=== PATIENT | female | born 1970 | race Caucasian/White ===

== ENCOUNTER → 2018-03-03 11:08 | Outpatient (CLI) | payer OTHER, BC, SELFPAY ==
[2018-03-03 12:21] LABS: Hematocrit 41.7 % (37-47); Mean Corp Hgb Conc 31.2 g/gl (32-36); Mean Corpuscular Hgb 26.6 pg (27.0-32.0); Mean Corpuscular Volume 85.5 fL (81-99); Mean Platelet Vol. 10.6 fl (6.2-12.0); Platelet Count 261 K/mm3 (150-450); RBC Distribution Width CV 14.5 % (11.6-14.6); RBC Distribution Width SD 45.7 fl (35.1-43.9); Red Blood Count 4.88 M/mm3 (4.2-5.4); White Blood Count 7.1 K/mm3 (4.4-11.0)
[2018-03-03 12:27] LABS: Scan Indicated on CBC? Y/N NO
[2018-03-03 12:47] LABS: Anion Gap 5 (5-15); BUN 12 mg/dL (7-18); BUN/Creat Ratio 13.6 RATIO (10-20); Calcium,Total 8.8 mg/dL (8.5-10.1); Chloride 105 mmol/L (98-107); Creatinine, Serum 0.88 mg/dL (0.55-1.02); EST Glomerular Filtration Rate 73 mL/min (>60); Est Glom Filt Rate - Afr Amer 88 mL/min (>60); Glucose 98 mg/dL (74-106); Potassium 3.5 mmol/L (3.5-5.1); Sodium Level 142 mmol/L (136-145)
== END ==
PROVIDERS: Family Provider Internal Medicine; PCP Internal Medicine; Visit Provider Orthopaedic Surgery
DX: Z01.818 Encounter for other preprocedural examination (principal); Z01.810 Encounter for preprocedural cardiovascular examination
CPT/HCPCS: 36415; 80048; 85027; 93005

== ENCOUNTER 2018-10-14 10:56 | Outpatient (RCR) | payer BC, SELFPAY | END 2018-10-23 23:59 | LOC: NS 10:56 | PROVIDERS: Family Provider Internal Medicine; PCP Internal Medicine; Visit Provider Orthopaedic Surgery | DX: E66.9 Obesity, unspecified (principal); Z68.42 Body mass index [BMI] 45.0-49.9, adult | CPT/HCPCS: 97802 ==

== ENCOUNTER → 2021-01-10 13:52 | Outpatient (CLI) | payer OTHER, SELFPAY ==
--- NOTE | 2021-01-10 13:59 | EKG12_ITS ---
Test Reason : PREOP Blood Pressure : / mmHG Vent. Rate : 066 BPM Atrial Rate : 066 BPM P-R Int : 202 ms QRS Dur : 096 ms QT Int : 380 ms P-R-T Axes : 063 072 065 degrees QTc Int : 398 ms Normal sinus rhythm Normal ECG Confirmed by KRISTIAN COELHO, ESTEPHANIA ([id number]), research editor CELI SUAZO ([id number]) on 01/13/2021 10:56:36 A M Referred By: Austin Zayas Confirmed By:GABY TOWNSEND MD
--- NOTE | 2021-01-10 14:15 | RAD_ITS ---
STUDY: X-RAY CHEST REASON FOR EXAM: Female, 50 years old. PREOP TECHNIQUE: PA and lateral views of the chest. COMPARISON: Comparison is made with prior study dated 01/18/2015. FINDINGS: The lungs are clear and expanded. There is no demonstrated pleural abnormality. Normal size heart. Normal mediastinum and aanly. Normal visualized pulmonary arteries. Normal visualized aortic arch and descending thoracic aorta. There are mild degenerative changes of the visualized thoracic spine. Normal visualized ribs, clavicles, and shoulders. There is no demonstrated abnormality of the visualized soft tissue structures of the upper abdomen. RAD/Chest PA and Lateral IMPRESSION: No acute abnormality is seen. Electronically Signed: Ozzy Maza MD at 15:33 EDT , Service support ,
== END ==
PROVIDERS: PCP Internal Medicine; Referring Provider Orthopaedic Surgery; Visit Provider Orthopaedic Surgery
DX: Z01.811 Encounter for preprocedural respiratory examination (principal); Z01.810 Encounter for preprocedural cardiovascular examination
CPT/HCPCS: 71046; 93005

== ENCOUNTER 2021-01-12 09:01 | Emergency (ER) | payer BC, MEDICAID, SELFPAY ==
[2021-01-12] VITALS (7 sets, daily range): BP systolic 135–170; BP diastolic 77–98; PULSE 104–122; RESP 17–43; TEMP 37.2–38.9; O2SAT 92–97; BMI 44.1
--- NOTE | 2021-01-12 09:23 | EKG12_ITS ---
Test Reason : Blood Pressure : / mmHG Vent. Rate : 119 BPM Atrial Rate : 119 BPM P-R Int : 200 ms QRS Dur : 092 ms QT Int : 284 ms P-R-T Axes : 045 063 006 degrees QTc Int : 399 ms Sinus tachycardia Nonspecific ST-T Changes Abnormal ECG Confirmed by KRISTIAN COELHO, ESTEPHANIA ([id number]), desk editor CELI SUAZO ([id number]) on 01/13/2021 10:51:36 A M Referred By: SKYLAR Confirmed By:GABY TOWNSEND MD
--- NOTE | 2021-01-12 09:24 | EDS_ITS ---
HPI History of Present Illness Chief Complaint: Cellulitis Informant: patient Onset/Context/Timing Onset: Today Quality: Red and swollen Location: Left foot Current Severity: Moderate Maximum Severity: Moderate Worsened by: Nothing Relieved by: Nothing Associated Symptoms Associated Symptoms: Fever/chills, malaise, feels heart beating fast Narrative Narrative: Patient presenting saying that she has cellulitis in her left foot. She has had this before. She states it occurred similar to this, where she woke up with redness and did not have any symptoms there last night. She states it really does not hurt. She has had chronic pain in her left ankle from a fracture/ORIF/hardware removal, she has had no surgeries on that in the past several years, and states that it has been hurting more when she is bearing weight on it for the last week or 2, but it has been in the ankle and not the foot where the redness is. She denies any injuries, splinters, splits in the skin, or any other obvious nidus for possible infection in her left foot recently. She went to [facility] urgent care initially this morning but was referred here to the emergency department. [facility] Medical History (Updated 01/12/21 @ 11:[address] Pawel Zhu MD) Anxiety Depression Depression Hypertension Home Medications bupropion HCl 300 mg PO DAILY 01/18/15 [History Last Taken Unknown] cyclobenzaprine 10 mg PO TID PRN #20 tablet 01/18/15 [Rx Last Taken Unknown] fluoxetine 10 mg PO DAILY 01/18/15 [History Last Taken Unknown] hydrochlorothiazide 12.5 mg PO DAILY 01/18/15 [History Last Taken Unknown] naproxen 500 mg PO BID PRN #20 tab 01/18/15 [Rx Last Taken Unknown] ondansetron 8 mg PO Q6H PRN PRN #20 tab 01/18/15 [Rx Last Taken Unknown] oxycodone-acetaminophen 1 - 2 tab PO Q4H PRN PRN #12 tab 01/18/15 [Rx Last Taken Unknown] cephalexin 500 mg PO Q6 #40 capsule 01/12/21 [Rx Last Taken Unknown] furosemide 20 mg PO DAILY 01/12/21 [History Last Taken Unknown] Allergy/AdvReac Type Severity Reaction Status Date / Time No Known Allergies Allergy Verified 01/12/21 09:02 Social History Smoking Status: Never smoker ROS ROS ED Constitutional Constitutional ED: Reports as per HPI, chills, fever(s) and malaise Eyes Eyes: Denies change in vision or diplopia ENT ENT ED: Denies rhinorrhea or sore throat Cardiovascular Cardiovascular: Reports other Details: I can tell my heart rate is increased. ; Denies chest pain or palpitations Respiratory/Chest Respiratory/Chest: Denies cough or dyspnea Gastrointestinal Gastrointestinal: Denies abdominal pain, diarrhea, nausea or vomiting Genitourinary Genitourinary ED: Denies dysuria or hematuria Musculoskeletal Musculoskeletal: Reports as per HPI and extremity pain; Denies back pain or neck pain Integumentary Reports as per HPI, erythema and rash; Denies abscess Neurologic Neurologic: Denies headache(s), paresthesias or weakness Psychiatric Psychiatric: Denies anxiety or suicidal thoughts EXAM Physical Exam Const Vital Signs: 01/12/21 09:02 01/12/21 10:53 01/12/21 10:54 Temperature 102.1 F H 99 F 99 F Temperature Source Oral Temporal Temporal Pulse Rate 122 H 119 H Respiratory Rate 17 22 H Blood Pressure 170/98 H 158/95 H Blood Pressure Mean 122 116 Pulse Ox 97 93 Oxygen Delivery Method Room Air Room Air 01/12/21 10:57 01/12/21 11:06 Temperature 99 F 99 F Temperature Source Temporal Temporal Pulse Rate 119 H 117 H Respiratory Rate 43 H 35 H Blood Pressure 158/95 H 135/77 H Blood Pressure Mean 116 96 Pulse Ox 93 93 Oxygen Delivery Method Room Air Room Air Positive well nourished and well developed General Appearance ED: well developed and NAD HEENT Reports moist mucous membranes normocephalic and atraumatic Eyes PERRL and EOMs intact bilaterally Neck full ROM and supple Resp normal respiratory effort and clear to auscultation bilaterally Cardio regular rate, regular rhythm and no murmurs Rate: tachycardic GI non-tender and non-distended Auscultation: normoactive bowel sounds Palpation: soft Back/Spine no CVA tenderness General Back: other FROM Extremity full ROM Extremity Narrative: Mildly tender both left ankle malleoli which has normal overlying skin and well-healed scars. She can move it fully without any apparent discomfort while nonweightbearing. There is erythema with some localized swelling and increased warmth on the dorsum of the left foot that involves toes 2-4. No obvious nidus for infection, checked the webspaces as well. Normal plantar aspect. General Extremety ED: Negative for pulses abnormal General Extremity: Negative for pulses abnormal Neuro oriented x3, CN's II-XII intact bilaterally and no sensory deficits noted Sensorium / Orientation: awake and alert Motor Exam: strength 5/5 throughout Skin no wounds Skin Narrative: Erythema with mild tenderness with deep palpation dorsum left foot. Nonwell-circumscribed edges. No lymphangitis or inguinal lymphadenopathy. No abscess. No bullae or other lesions. MDM MDM MDM Narrative Medical decision making narrative: Erythema is warm, it is not itchy and not painful, and barely tender to only deep palpation. However with her prior history, and the fact that she has a fever and no other symptoms of a source, this is a cellulitis until proven otherwise. Given her vital signs, septic work-up was obtained and she was given IV vancomycin. X-ray 3 views left foot on monitor rotation shows no evidence of fracture or osteomyelitis. No subcutaneous air. She states she has been placed on Keflex in the past which has helped. She meets criteria for sepsis although her lactate is normal, she was offered admission. She declined, she wants to be discharged home and treat this as an outpatient. We outlined the area with a skin marking pen to help her follow progression, and she is comfortable with this overall plan, we discussed reasons to return. Of note, on my reevaluation, the erythema has not changed in its distribution compared with when the patient presented. Lab Data Labs: Laboratory Results - last 24 hr 01/12/21 01/12/21 01/12/21 10:30 10:30 10:30 WBC 13.5 H RBC 5.16 Hgb 13.8 Hct 43.1 MCV 83.5 MCH 26.7 L MCHC 32.0 RDW Std Deviation 41.7 RDW Coeff of Tong 13.7 Plt Count 234 MPV 10.3 Immature Gran % (Auto) 0.300 Neut % (Auto) 90.1 H Lymph % (Auto) 4.3 L [place] % (Auto) 5.0 Eos % (Auto) 0.1 Baso % (Auto) 0.2 Absolute Neuts (auto) 12.2 H Absolute Lymphs (auto) 0.58 L Nucleated RBC % 0 Platelet Estimate ADEQUATE RBC Morphology NORM C+C PT 13.1 INR 1.1 APTT 28.8 Sodium 139 Potassium 4.0 Chloride 107 Carbon Dioxide 24.0 Anion Gap 8 BUN 13 Creatinine 0.78 Estim Creat Clear Calc 87.04 Est GFR (MDRD) Af Amer 100 Est GFR (MDRD) Non-Af 83 BUN/Creatinine Ratio 16.6 Glucose 104 Lactic Acid Calcium 9.0 Total Bilirubin 0.80 AST 22 ALT 63 H Alkaline Phosphatase 104 Total Protein 7.7 Albumin 3.7 Globulin 4.0 Albumin/Globulin Ratio 0.9 01/12/21 10:30 WBC RBC Hgb Hct MCV MCH MCHC RDW Std Deviation RDW Coeff of Tong Plt Count MPV Immature Gran % (Auto) Neut % (Auto) Lymph % (Auto) [place] % (Auto) Eos % (Auto) Baso % (Auto) Absolute Neuts (auto) Absolute Lymphs (auto) Nucleated RBC % Platelet Estimate RBC Morphology PT INR APTT Sodium Potassium Chloride Carbon Dioxide Anion Gap BUN Creatinine Estim Creat Clear Calc Est GFR (MDRD) Af Amer Est GFR (MDRD) Non-Af BUN/Creatinine Ratio Glucose Lactic Acid 1.6 Calcium Total Bilirubin AST ALT Alkaline Phosphatase Total Protein Albumin Globulin Albumin/Globulin Ratio Radiography Diagnostic Testing: Radiology Impression Foot X-Ray 01/12/21 09:24 IMPRESSION: No acute osseous abnormality identified in the left foot. at 1042 Reported and signed by: Shannon Harrison MD Electronically Signed: Shannon Harrison MD at 10:40 EDT Tel , Service support , Discharge Plan Triage Chief Complaint: Cellulitis ED Provider: Pawel Zhu Dx/Rx/DC Orders Clinical Impression: Cellulitis of left foot, Sepsis Instructions: Cellulitis Prescriptions: New cephalexin [cephalexin] 500 MG capsule 500 mg PO Q6 Qty: 40 RF: 0 No Action hydrochlorothiazide 12.5 MG capsule 12.5 mg PO DAILY RF: 0 fluoxetine 10 MG capsule 10 mg PO DAILY RF: 0 bupropion HCl 300 MG tablet extended release 24 hr 300 mg PO DAILY RF: 0 oxycodone-acetaminophen 1 TABLET tablet 1 - 2 tab PO Q4H PRN PRN (Reason: Pain) Qty: 12 RF: 0 cyclobenzaprine 10 MG tablet 10 mg PO TID PRN (Reason: Muscle Spasm) Qty: 20 RF: 0 naproxen 500 MG tablet 500 mg PO BID PRN Qty: 20 RF: 0 ondansetron 4 MG tablet 8 mg PO Q6H PRN PRN (Reason: Nausea) Qty: 20 RF: 0 furosemide 20 mg tablet 20 mg PO DAILY RF: 0 Primary Care Provider: Parul Mccloud Referrals: Parul Mccloud MD [Primary Care Provider] - (2-3-day follow-up, call tomorrow for appointment) Disposition Disposition: Home, self care
--- NOTE | 2021-01-12 09:24 | RAD_ITS ---
HISTORY: pain/infection. TECHNIQUE: XR Foot Min 3 Views. # of images incl. paperwork: 3. COMPARISON: 12/05/2012. FINDINGS: BONES: No acute fracture or cortical erosion identified. Prominent osteophytes of the medial midfoot again seen. Calcaneal enthesopathy noted. JOINTS: No dislocation. Degenerative changes. SOFT TISSUES: Soft tissue swelling of the ankle and foot. RAD/Foot min 3 Views IMPRESSION: No acute osseous abnormality identified in the left foot. at 1042 Reported and signed by: Shannon Harrison MD Electronically Signed: Shannon Harrison MD at 10:40 EDT Tel , Service support ,
[2021-01-12 10:44] LABS: Absolute Lymphocyte Count 0.58 X10^3/uL (0.83-4.51); Absolute Neutrophil Count 12.2 X10^3/uL (2.0-7.7); Basophil# 0.03 X10^3/uL; Basophil% 0.2 % (0-1); Eosinophil# 0.01 X10^3/uL; Eosinophils% 0.1 % (0-5); Hematocrit 43.1 % (37-47); Hemoglobin 13.8 g/dL (12.0-15.0); Lymphocyte # 0.58 X10^3/ul (0.83-4.51); Lymphocyte % 4.3 % (19-41); Mean Corpuscular Hgb 26.7 pg (27.0-32.0); Mean Corpuscular Volume 83.5 fL (81-99); Mean Platelet Vol. 10.3 fl (6.2-12.0); Monocyte# 0.67 X10^3/uL; NRBC Flagged by Analyzer 0 % (0-5); Neutrophil # 12.19 X10^3/uL (2.7-7.7); Neutrophil % 90.1 % (47-70); POSITIVE DIFFERENTIAL YES; Platelet Count 234 K/mm3 (150-450); RBC Distribution Width CV 13.7 % (11.6-14.6); RBC Distribution Width SD 41.7 fl (35.1-43.9); Red Blood Count 5.16 M/mm3 (4.2-5.4); White Blood Count 13.5 K/mm3 (4.4-11.0)
[2021-01-12 10:46] LABS: Differential Indicated SCAN CRITERIA MET
[2021-01-12 10:50] LABS: International Normalized Ratio 1.1; Prothrombin Time (Protime)PT. 13.1 SECONDS (11.7-14.9)
[2021-01-12 10:53] LABS: Partial Thromboplast Time 28.8 Seconds (24.1-36.2)
[2021-01-12 10:59] LABS: ALB/GLOB Ratio 0.9 RATIO (0.9-2.4); AST(SGOT) 22 U/L (15-37); Alanine Aminotransfer ALT/SGPT 63 U/L (13-56); Albumin, Serum 3.7 g/dL (3.2-5.0); Alkaline Phosphatase 104 U/L (45-117); Anion Gap 8 (5-15); BUN 13 mg/dL (7-18); BUN/Creat Ratio 16.6 RATIO (10-20); Chloride 107 mmol/L (98-107); Creatinine, Serum 0.78 mg/dL (0.55-1.02); EST Glomerular Filtration Rate 83 mL/min (>60); Est Glom Filt Rate - Afr Amer 100 mL/min (>60); Estimated Creatinine Clearance 87.04 ml/min; Glucose 104 mg/dL (74-106); Protein, Total 7.7 g/dL (6.4-8.2); Sodium Level 139 mmol/L (136-145)
[2021-01-12 11:03] LABS: Lactic Acid 1.6 mmol/L (0.4-1.9)
[2021-01-12] MEDS: Acetaminophen 500 MG Tablet 1000 MG PO (11:07)
[2021-01-12 11:13] LABS: Platelet Estimate ADEQUATE (ADEQ)
[2021-01-12 11:14] LABS: Red Cell Morphology NORM C+C NORMAL (NORM C&C)
[2021-01-12] MEDS: Ketorolac 15 MG/ML Vial IV (12:10)
== END 2021-01-12 14:07 | disposition home or self-care (01) ==
PROVIDERS: Emergency Provider Emergency Medicine; PCP Internal Medicine
DX: A41.9 Sepsis, unspecified organism (principal); L03.116 Cellulitis of left lower limb; F32.9 Major depressive disorder, single episode, unspecified; F41.9 Anxiety disorder, unspecified; I10 Essential (primary) hypertension; Z79.899 Other long term (current) drug therapy
CPT/HCPCS: 73630; 80053; 83605; 85025; 85610; 85730; 87040; 93005; 96365; 96375; 99285; J7040; J7050; A4216

== ENCOUNTER → 2021-05-01 15:11 | Outpatient (CLI) | payer OTHER, BC, MEDICAID, SELFPAY ==
--- NOTE | 2021-05-01 15:13 | VDLE_ITS ---
Reason For Study: Pain RIGHT LEFT GSV is normal. GSV is normal. CFV is compressible, spontaneous, phasic, CFV is compressible, spontaneous, phasic, competent and demonstrates normal competent, and demonstrates normal augmentation. augmentation. FV is compressible, spontaneous, phasic, FV is compressible, spontaneous, phasic, competent and demonstrates normal competent and demonstrates normal augmentation. augmentation. POP V is compressible, spontaneous, phasic, POP V is compressible, spontaneous, phasic, competent and demonstrates normal competent and demonstrates normal augmentation. augmentation. T/P Trunk is compressible. T/P Trunk is compressible. PTV is compressible. PTV is compressible. RT PerV is compressible. LT PerV is compressible. Nonvascularized structure noted in the right popliteal fossa 1.45 x 4.21 x 4.89 cm. Procedure This is a venous duplex using B-mode, color flow and spectral Doppler. Exam performed in department. A preliminary report was called and/or faxed to [facility]. VL/Venous Duplex US - [facility] Extrem Interpretation Summary Deep veins of the lower extremities are bilaterally patent and compressible seg mentally. There is no evidence of deep vein thrombosis on either side. Valvular competence appears in tact within the proximal deep venous systems bilaterally. The great saphenous veins appear bila terally patent and compressible segmentally. A non-vascular, heterogeneous structure is noted in t he right popliteal space, measuring 1.45 cm x 4.21 cm x 4.89 cm. This may represent a popliteal cy st. Clinical correlation is advised. Ordering Physician: Austin Zayas Referring Physician: Parul Mccloud Performed By: Hannah Avery RVT
== END ==
PROVIDERS: PCP Internal Medicine; Referring Provider Orthopaedic Surgery; Visit Provider Orthopaedic Surgery
DX: M79.662 Pain in left lower leg (principal); M79.661 Pain in right lower leg
CPT/HCPCS: 93970

== ENCOUNTER → 2023-02-25 | Outpatient (CLI) | payer OTHER, BC, SELFPAY ==
[2023-02-25 09:23] LABS: Erythrocyte Sedimentation Rate 10 mm/hr (0-30)
[2023-02-25 09:25] LABS: Absolute Lymphocyte Count 2.27 X10^3/uL (0.83-4.51); Absolute Neutrophil Count 2.7 X10^3/uL (2.0-7.7); Basophil# 0.05 X10^3/uL; Basophil% 0.9 % (0-1); Eosinophil# 0.06 X10^3/uL; Eosinophils% 1.1 % (0-5); Hemoglobin 13.4 g/dL (12.0-15.0); Lymphocyte # 2.27 X10^3/ul (0.83-4.51); Lymphocyte % 41.2 % (19-41); Mean Corp Hgb Conc 32.7 g/dL (32-36); Mean Corpuscular Hgb 27.3 pg (27.0-32.0); Mean Corpuscular Volume 83.7 fL (81-99); Mean Platelet Vol. 9.9 fl (6.2-12.0); Monocyte# 0.43 X10^3/uL; Monocyte% 7.8 % (0-10); NRBC Flagged by Analyzer 0 % (0-5); Neutrophil # 2.68 X10^3/uL (2.7-7.7); Neutrophil % 48.6 % (47-70); Platelet Count 246 K/mm3 (150-450); RBC Distribution Width CV 14.4 % (11.6-14.6); RBC Distribution Width SD 43.9 fl (35.1-43.9); White Blood Count 5.5 K/mm3 (4.4-11.0)
[2023-02-25 09:47] LABS: CRP 8.99 mg/L (0.0-3.0)
[2023-02-25 15:51] LABS: Pathologist Comment May follow
[2023-02-25 16:51] LABS: RBC /Synovial Fluid 0.035 10^6/uL (0); Synovial Fld Mononuclear WBC % 77.6 %; Synovial Fld Polynuclear WBC # 0.084 10^3/uL; Synovial Fld Polynuclear WBC % 22.4 %
[2023-02-25 20:59] LABS: Lymph 36 %; Monocyte /Synovial Fluid 1 %; Neutrophil 18 % (0-25); Other Cell /Synovial Fluid 45 %
[2023-02-25 21:03] LABS: AUTO B FLUID DILUENT BKGD CT WBC <0.1 RBC <0.01 (W<.1,R<.01); CRYSTALS, BODY FLUID NO CRYSTALS SEEN; Source / Synovial Fluid LEFT KNEE; Source- Body Fluid SYNOVIAL
[2023-02-25 21:04] LABS: Appearance /Synovial Fluid Cloudy (CLEAR); Color / Synovial Fluid Red (Pale Yellow)
[2023-02-25 21:06] LABS: Body Fluid QC Type(s) BF3Q,BF4Q
[2023-03-01 08:59] LABS: Pathologist Review Reviewed
== END | disposition home or self-care (01) ==
PROVIDERS: PCP Nurse Practitioner Family; Referring Provider Orthopaedic Surgery; Visit Provider Orthopaedic Surgery
DX: Z96.652 Presence of left artificial knee joint (principal); M25.562 Pain in left knee
CPT/HCPCS: 36415; 85025; 85652; 86140; 87015; 87070; 87075; 87101; 87116; 87205; 87206; 89050; 89051; 89060

== ENCOUNTER → 2024-03-16 | Outpatient (CLI) | payer BC, SELFPAY | END | disposition home or self-care (01) | LOC: SL 13:02 | PROVIDERS: PCP Nurse Practitioner Family; Referring Provider Student in an Organized Health Care Education/Training Program; Visit Provider Student in an Organized Health Care Education/Training Program | DX: G47.10 Hypersomnia, unspecified (principal) | CPT/HCPCS: 95806 ==

== ENCOUNTER → 2024-09-18 | Outpatient (CLI) | payer OTHER, SELFPAY | END | disposition home or self-care (01) | LOC: SL 13:28 | PROVIDERS: PCP Nurse Practitioner Family; Visit Provider Nurse Practitioner Family | DX: Z46.89 Encounter for fitting and adjustment of other specified devices (principal); G47.33 Obstructive sleep apnea (adult) (pediatric) | CPT/HCPCS: 98960; G0463 ==